=== PATIENT | male | born 1990 | race Native Hawaiian/Other Pacific Islander ===

== ENCOUNTER 2020-05-10 06:50 | Emergency (ER) | payer OTHER ==
[~2020-05-10] VITALS: Ht 177.8 cm; Wt 136.1 kg
[2020-05-10] MEDS ORDERED: VITAMIN SUPPLEMENT (06:54)
[2020-05-10 07:27] LABS: HEMATOCRIT 45.7 % (42.0-52.0); HEMOGLOBIN 15.5 gm/dL (14.0-18.0); MCH 30.1 pg (26.0-34.0); MCV 88.6 fL (80.0-100.0); RBC 5.16 mil/uL (4.50-6.00); RDW 13.7 % (10.5-14.5); WBC 6.8 thou/uL (4.0-11.0)
[2020-05-10 07:39] LABS: ANION GAP 8 mmol/L (7-16); BUN 14 mg/dL (7-18); CALCIUM 8.4 mg/dL (8.5-10.1); CHLORIDE 102 mmol/L (98-107); CO2 27 mmol/L (21-32); GLUCOSE 135 mg/dL (74-106); POTASSIUM 3.2 mmol/L (3.5-5.1); SODIUM 137 mmol/L (136-145)
--- NOTE | 2020-05-10 07:41 | EKG ---
[facility] [address] ELECTROCARDIOGRAM REPORT Name: CHILANGO MICHAUD Room #: REG [facility]..#: [id number] Admission: 05/10/20 Attend Phys: Discharge: Date of : 86 Report #: [id number] THIS REPORT FOR: cc: FAM - Family physician unknown FAM - Family physician unknown Omar Otoole MD [facility] ~ THIS REPORT FOR: //name// [facility] ED Test Date: 2020-05-10 Test Time: 07:06:10 Pat Name: CHILANGO MICHAUD Department: Room: Gender: M Welfare Worker: : 1990 Requested By: Dayton Staples Order Number: [id number] MD: Omar Otoole Measurements Intervals [place] Rate: 89 P: 56 HI: 171 QRS: 59 QRSD: 101 T: 8 QT: 384 QTc: 468 Interpretive Statements Sinus rhythm Poor R wave progression No previous ECG available for comparison Electronically Signed On 05-10-2020 7:39:58 CDT by Omar Otoole [email or web address] <ELECTRONICALLY SIGNED> By: Omar Otoole MD, [facility] 05/10/20 [id number] 5 Omar Otoole MD, FACC /EPI
[2020-05-10 07:50] LABS: TROPONIN-I <0.06 ng/mL (<0.06)
[2020-05-10] MEDS ORDERED: ZOFRAN ODT4 MG PO (08:20)
[2020-05-10] MEDS ORDERED: MECLIZINE HCL25 M1 PO (08:20)
[2020-05-10 08:57] VITALS: BP 117/55
== END 2020-05-10 08:57 | disposition home or self-care (01) ==
LOC: ER 06:50
PROVIDERS: Emergency Medicine
DX: R11.2 Nausea with vomiting, unspecified (principal); H81.399 Other peripheral vertigo, unspecified ear; F17.210 Nicotine dependence, cigarettes, uncomplicated